=== PATIENT | female | born 1960 | race Caucasian/White ===

== ENCOUNTER 2016-07-29 14:34 | Outpatient (CLI) | payer OTHER | END 2016-07-29 14:35 | disposition home or self-care (01) | LOC: NC 14:34 | PROVIDERS: ATTEND Family Medicine | DX: E11.65 Type 2 diabetes mellitus with hyperglycemia (principal); Z71.3 Dietary counseling and surveillance; E66.9 Obesity, unspecified; Z68.36 Body mass index [BMI] 36.0-36.9, adult ==